=== PATIENT | female | born 1975 | race Caucasian/White ===

== ENCOUNTER 2020-09-19 12:10 | Emergency (ER) | payer BC ==
[2020-09-19 12:31] VITALS: RESP 18
[2020-09-19] MEDS ORDERED: KETOROLAC 15 MG/ML 1 ML VIAL IVP STA (12:58)
[2020-09-19 13:38] LABS: Basophils % (A) 0 %; Eosinophils # (A) 0.2 k/uL (0-0.7); Eosinophils % (A) 2 %; HCT 35.6 % (34.0-46.0); HGB 11.7 gm/dL (11.4-16.0); Lymphocytes # (A) 1.3 k/uL (1.0-4.8); Lymphocytes % (A) 17 %; MCH 29.8 pg (25.0-35.0); MCHC 32.8 g/dL (31.0-37.0); MCV 90.7 fL (80.0-100.0); Mean Platelet Volume 6.9; Monocytes # (A) 0.6 k/uL (0-1.0); Monocytes % (A) 8 %; Neutrophils # (A) 5.5 k/uL (1.3-7.7); Neutrophils % (A) 71 %; Platelet Count 342 k/uL (150-450); RBC 3.92 m/uL (3.80-5.40); RDW 12.5 % (11.5-15.5); WBC 7.7 k/uL (3.8-10.6)
[2020-09-19 13:58] LABS: ALT 10 U/L (4-34); AST 19 U/L (14-36); African American GFR (CKD) >90 (>60 ml/min/1.73 sqM); Albumin 4.1 g/dL (3.5-5.0); Alkaline Phosphatase 69 U/L (38-126); Anion Gap 4 mmol/L; Blood Urea Nitrogen 9 mg/dL (7-17); C Reactive Protein <5.0 mg/L (<10.0); Calcium 9.6 mg/dL (8.4-10.2); Carbon Dioxide 33 mmol/L (22-30); Chloride 102 mmol/L (98-107); Glucose 102 mg/dL (74-99); Non-African American GFR(CKD) >90 (>60 ml/min/1.73 sqM); Potassium 4.3 mmol/L (3.5-5.1); Sodium 139 mmol/L (137-145); Total Bilirubin 0.4 mg/dL (0.2-1.3)
--- NOTE | 2020-09-19 14:41 | CT ---
EXAMINATION TYPE: CT sinus w con DATE OF EXAM: 09/19/2020 COMPARISON: None. HISTORY: Dental pain , swelling, and fever since right-sided extraction CT DLP: 588.6 mGycm Automated exposure control for dose reduction was used. CONTRAST: CT scan of the facial bones is performed with IV Contrast, patient injected with 100 mL of Isovue 300 . TECHNIQUE: CT scan of the facial bones is performed with IV contrast, axial images are obtained, angie nal reformatted images are also reviewed. FINDINGS: Streak artifact from multiple cavitary fillings and crowns in the bilateral maxillary cristino bular teeth makes evaluation suboptimal asymmetric moderate soft tissue swelling and fat stranding ri ght submandibular level. No well-formed fluid collection or drainable abscess. There is bony breakthr ough with absent right canine tooth axial image 38 may be source of the infection. Several adjacent r oot canals are noted. Absent tooth also seen lateral to this axial image 36 premolar level with lucen cy. No bony breakthrough at this level. The airway remains patent. Some prominent but subcentimeter l ymph nodes throughout the neck bilaterally. Visualized paranasal sinuses are clear. Visualized portion of mastoid air cells show no abnormal opacification. The globes are intact bilate rally. Visualized brain parenchyma unremarkable. IMPRESSION: Moderate inflammatory change right facial region without focal fluid collection or draina ble abscess. Source likely right canine maxillary tooth recently removed as there is lucency with bon y breakthrough at this level centrally at the deep aspect of the inflammatory change.
--- NOTE | 2020-09-19 15:27 | ED ---
Skin/Abscess/FB HPI - General Chief complaint: Skin/Abscess/Foreign Body Stated complaint: dental pain Time Seen by Provider: 09/19/20 12:43 Source: patient Mode of arrival: ambulatory - History of Present Illness Initial comments: Patient is a 45-year-old female presenting to the emergency Department with complaints of right-sided facial swelling and dental pain for the last 3 days. Patient states 5 days ago she had 2 tooth extractions. Patient states she was doing well for the first 2 days afterwards but then the third day started noticing increase in pain and swelling of her right side of her cheek. She states she did call her dentist yesterday and started her on clindamycin, 150 mg 4 times daily. Patient states today the pain and pressure has increased and she also feels that the swelling has gotten worse as well. She denies any fevers, no nausea or vomiting, no other complaints at this time. - Related Data Home Medications Medication Instructions Recorded Confirmed Acetaminophen with Codeine 1 tab PO Q6H PRN 09/19/20 09/19/20 [Tylenol w/Codeine #4 Tablet] Clindamycin [Cleocin] 150 mg PO Q6H 09/19/20 09/19/20 estradioL [estradioL (Twice 1 patch TRANSDERM SUTH 09/19/20 09/19/20 Weekly) 0.1 mg Patch] Previous Rx's Medication Instructions Recorded Clindamycin HCl 300 mg PO Q6HR 7 Days #28 cap 09/19/20 HYDROcodone/APAP 5-325MG [[place] 5] 1 each PO Q4HR PRN #10 tab 09/19/20 Allergies Allergy/AdvReac Type Severity Reaction Status Date / Time amoxicillin Allergy Anaphylaxis Verified 09/19/20 13:42 clavulanic acid Allergy Anaphylaxis Verified 09/19/20 13:42 [From Augmentin] Penicillins Allergy Anaphylaxis Verified 09/19/20 13:42 hydrocodone [From Vicodin] AdvReac Nausea & Verified 09/19/20 13:42 Vomiting Review of Systems ROS Statement: Those systems with pertinent positive or pertinent negative responses have been documented in the HPI. ROS Other: All systems not noted in ROS Statement are negative. Past Medical History Past Medical History: Cancer Additional Past Medical History / Comment(s): cervical CA, kidney issues History of Any Multi-Drug Resistant Organisms: None Reported Additional Past Surgical History / Comment(s): laproscopy Past Psychological History: No Psychological Hx Reported Smoking Status: Vaper Past Alcohol Use History: None Reported Past Drug Use History: None Reported General Exam - General Exam Comments Initial Comments: GENERAL: Patient is well-developed and well-nourished. Patient is nontoxic and in no acute distress. HEAD: Atraumatic, normocephalic. EYES: Pupils equal round and reactive to light, extraocular movements intact, sclera anicteric, conjunctiva are normal. Eyelids were unremarkable. ENT: TMs normal, nares patent, oropharynx clear without exudates. Moist mucous membranes. Recent dental extractions of teeth # 4&5. No visible sign of dental abscess or significant drainage. Patient does have mild to moderate swelling of the right side of the face. There is no overlying erythema. NECK: Normal range of motion, supple without lymphadenopathy or JVD. LUNGS: Unlabored respirations. Breath sounds clear to auscultation bilaterally and equal. No wheezes rales or rhonchi. HEART: Regular rate and rhythm without murmurs, rubs or gallops. ABDOMEN: Soft, nontender, normoactive bowel sounds. No guarding, no rebound. No masses appreciated. : Deferred MUSCULOSKELETAL: Normal extremities with adequate strength and normal range of motion, no pitting or edema. No clubbing or cyanosis. NEUROLOGICAL: Patient is alert and oriented x 3. Motor and sensory are also intact. Cranial nerves II through XII grossly intact. Symmetrical smile. Normal speech, normal gait. PSYCH: Normal mood, normal affect. SKIN: Warm, Dry, normal turgor, no rashes or lesions noted. Course Vital Signs 09/19/20 09/19/20 12:24 15:31 Temperature 99.7 F H 98.2 F Pulse Rate 78 80 Respiratory 18 18 Rate Blood Pressure 105/54 100/56 O2 Sat by Pulse 100 99 Oximetry Medical Decision Making - Medical Decision Making Patient is a 45-year-old female here for right-sided facial swelling increase in pain 5 days after 2 dental extractions. Patient did arrive at 99.7 temporal, rest of vitals are normal. Labs show normal white count, normal CRP. Computed tomography scan revealed no evidence of acute abscess. Patient was on clindamycin 150 mg, did increase this for a total of 400 mg 4 times daily. Patient will follow-up with her dentist. Return parameters were discussed with the patient she verbalized understanding. Case discussed Dr. Bustillo. - Lab Data Result diagrams: 09/19/20 13:20 09/19/20 13:20 Lab Results 09/19/20 09/19/20 Range/Units 13:20 13:20 WBC 7.7 (3.8-10.6) k/uL RBC 3.92 (3.80-5.40) m/uL Hgb 11.7 (11.4-16.0) gm/dL Hct 35.6 (34.0-46.0) % MCV 90.7 (80.0-100.0) fL MCH 29.8 (25.0-35.0) pg MCHC 32.8 (31.0-37.0) g/dL RDW 12.5 (11.5-15.5) % Plt Count 342 (150-450) k/uL MPV 6.9 Neutrophils % 71 % Lymphocytes % 17 % Monocytes % 8 % Eosinophils % 2 % Basophils % 0 % Neutrophils # 5.5 (1.3-7.7) k/uL Lymphocytes # 1.3 (1.0-4.8) k/uL Monocytes # 0.6 (0-1.0) k/uL Eosinophils # 0.2 (0-0.7) k/uL Basophils # 0.0 (0-0.2) k/uL Sodium 139 (137-145) mmol/L Potassium 4.3 (3.5-5.1) mmol/L Chloride 102 (98-107) mmol/L Carbon Dioxide 33 H (22-30) mmol/L Anion Gap 4 mmol/L BUN 9 (7-17) mg/dL Creatinine 0.57 (0.52-1.04) mg/dL Est GFR (CKD-EPI)AfAm >90 (>60 ml/min/1.73 sqM) Est GFR (CKD-EPI)NonAf >90 (>60 ml/min/1.73 sqM) Glucose 102 H (74-99) mg/dL Calcium 9.6 (8.4-10.2) mg/dL Total Bilirubin 0.4 (0.2-1.3) mg/dL AST 19 (14-36) U/L ALT 10 (4-34) U/L Alkaline Phosphatase 69 (38-126) U/L C-Reactive Protein <5.0 (<10.0) mg/L Total Protein 7.0 (6.3-8.2) g/dL Albumin 4.1 (3.5-5.0) g/dL Disposition Clinical Impression: Swelling of right side of face, Dental abscess Disposition: HOME SELF-CARE Condition: Stable Instructions (If sedation given, give patient instructions): Dental Abscess (ED) Additional Instructions: Please return to the Emergency Department if symptoms worsen or any other concerns. Take antibiotics as prescribed. Take motrin for pain, for severe pain, may take norco. Follow-up with Dentist. Prescriptions: Clindamycin HCl 300 mg PO Q6HR 7 Days #28 cap HYDROcodone/APAP 5-325MG [[place] 5] 1 each PO Q4HR PRN #10 tab PRN Reason: Pain Is patient prescribed a controlled substance at d/c from ED?: Yes When asked, does pt state using other controlled substances?: No If prescribed controlled substance>3 days was MAPS reviewed?: Prescribed <3 Days If opioid is for acute pain is fill amount 7 days or less?: Yes If Rx opioid, was Start Talking consent form obtained?: Yes Referrals: Irving Kinsey MD [Primary Care Provider] - 1-2 days
[2020-09-19 15:50] VITALS: BP 100/56; PULSE 80; TEMP 98.2
== END 2020-09-19 15:35 | disposition home or self-care (01) ==
LOC: EC 12:10
DX: K04.7 Periapical abscess without sinus (principal); F17.290 Nicotine dependence, other tobacco product, uncomplicated; Z79.890 Hormone replacement therapy; Z88.0 Allergy status to penicillin; Z88.5 Allergy status to narcotic agent; Z88.1 Allergy status to other antibiotic agents; Z85.41 Personal history of malignant neoplasm of cervix uteri; Z98.818 Other dental procedure status
CPT/HCPCS: 36415; 80053; 85025; 86140; 70487; 99283; 96374; J1885; Q9967

== ENCOUNTER 2023-04-20 09:34 | Day surgery (SDC) | payer BC ==
[2023-04-19 11:03] VITALS: BMI 23.3
--- NOTE | 2023-04-19 12:32 | P.GSHP ---
History of Present Illness H&P Date: 04/19/23 48-year-old female with a several millimeter distal left ureteral stone causing discomfort. She has a history of kidney stones. She comes for left ureteroscopy and laser lithotripsy - Constitutional Constitutional: Denies chills, Denies fever - EENT Eyes: denies blurred vision, denies pain Ears, nose, mouth and throat: Denies headache, Denies sore throat - Cardiovascular Cardiovascular: Denies chest pain, Denies shortness of breath - Respiratory Respiratory: Denies cough, Denies 7 - Gastrointestinal Gastrointestinal: Denies abdominal pain, Denies diarrhea, Denies nausea, Denies vomiting - Genitourinary (Female) Genitourinary: Denies dysuria, Denies hematuria - Genitourinary (Male) Genitourinary: Denies dysuria, Denies hematuria - Musculoskeletal Musculoskeletal: Denies myalgias - Integumentary Integumentary: Denies pruritus, Denies rash - Neurological Neurological: Denies numbness, Denies weakness - Psychiatric Psychiatric: Denies anxiety, Denies depression - Endocrine Endocrine: Denies fatigue, Denies weight change Past Medical History Past Medical History: Cancer Additional Past Medical History / Comment(s): cervical CA, kidney stones History of Any Multi-Drug Resistant Organisms: None Reported Past Surgical History: Hysterectomy Additional Past Surgical History / Comment(s): kidney stone removal Past Anesthesia/Blood Transfusion Reactions: No Reported Reaction Past Psychological History: No Psychological Hx Reported Smoking Status: Former smoker, Vaper Past Alcohol Use History: None Reported Past Drug Use History: None Reported - Past Family History Father Family Medical History: Myocardial Infarction ([place]) Medications and Allergies Home Medications Medication Instructions Recorded Confirmed Type Acetaminophen-Codeine 300-30mg 1 tab PO Q6H PRN 04/19/23 04/19/23 History [Tylenol w/codeine #3] Ketorolac [Toradol] 10 mg PO Q6HR PRN 04/19/23 04/19/23 History Ondansetron [Zofran] 4 mg PO Q6H PRN 04/19/23 04/19/23 History Tamsulosin [Flomax] 0.4 mg PO DAILY 04/19/23 04/19/23 History Allergies Allergy/AdvReac Type Severity Reaction Status Date / Time amoxicillin Allergy Anaphylaxis Verified 04/19/23 10:51 clavulanic acid Allergy Anaphylaxis Verified 04/19/23 10:51 [From Augmentin] Penicillins Allergy Anaphylaxis Verified 04/19/23 10:51 sertraline [From Zoloft] Allergy Rash/Hives Verified 04/19/23 10:51 hydrocodone [From Vicodin] AdvReac Nausea & Verified 04/19/23 10:51 Vomiting Results - Imaging CT scan - abdomen: report reviewed, image reviewed CT scan - pelvis: report reviewed, image reviewed Assessment and Plan Assessment: Impression: Left ureteral stone with obstruction Recommendations left ureteroscopy laser lithotripsy possible stent
[~2023-04-20 09:34] MED LIST: DEXAMETHASONE SOD PHOSPHATE 4 MG/ML 1 ML VIAL IV ONE; HYDROmorphone 0.5 MG/0.5 ML SYRINGE IVP PRN; LACTATED RINGERS 1,000 ML IV SCH; ONDANSETRON 4 MG/2 ML VIAL IVP ONE
--- NOTE | 2023-04-20 10:11 | XR ---
EXAMINATION TYPE: XR KUB DATE OF EXAM: 04/20/2023 COMPARISON: None INDICATION: Kidney stone TECHNIQUE: Single view abdomen FINDINGS: There is a normal bowel gas pattern. Fecal debris is within the colon. Psoas margins are normal. No organomegaly is present. Suspicious calcifications are not identified. Couple of tiny punctate calcifications overlying the in ferior pole right kidney may be present. Tiny calcification over the superior pole left kidney is not excluded. IMPRESSION: 1. There may be tiny calcifications present overlying the kidneys. 2. Moderate fecal retention.
[2023-04-20] MEDS ORDERED: LIDOCAINE 1% (10MG/ML) FOR IV START INTRADERMA ONE (11:12)
[2023-04-20] MEDS ORDERED: MIDAZOLAM 2 MG/2 ML VIAL ONE (11:38)
[2023-04-20] MEDS ORDERED: KETOROLAC 15 MG/ML 1 ML VIAL ONE (11:38)
[2023-04-20] MEDS ORDERED: fentaNYL (PF) 50 MCG/ML 2 ML AMP ONE (11:38)
[2023-04-20] MEDS ORDERED: LIDOCAINE 2% INJ 20 MG/ML (2 ML VIAL) ONE (11:38)
[2023-04-20] MEDS ORDERED: PROPOFOL 10 MG/ML 20 ML VIAL IV ONE (11:38)
[2023-04-20] MEDS ORDERED: IOPAMIDOL-370 100ML BTL INJ ONE (12:04)
--- NOTE | 2023-04-20 12:18 | P.OP ---
Date of Procedure: 04/20/23 Preoperative Diagnosis: Left ureteral calculus with obstruction and colic. Right ureteral colic, new onset, history kidney stones Postoperative Diagnosis: Same, stone passed left, normal retrograde pyelogram right Procedure(s) Performed: Cystoscopy, bilateral retrograde pyelograms, left ureteroscopy Anesthesia: BRITTANYA Surgeon: Emil Huynh Estimated Blood Loss (ml): 0 Pathology: none sent Condition: stable Disposition: PACU Indications for Procedure: Patient is 48. She came to me late last week with a 8-9 mm distal ureteral stone on the left a history of multiple stone passages out of state in the past. Small bilateral renal calculi. Because of persistent pain she wishes the stone to be removed. The patient still states she has a lot of pain today consistent with a distal ureteral stone. She has new onset right-sided pain. For cystoscopy bilateral retrograde pyelograms probable left ureteroscopy and laser lithotripsy Description of Procedure: Patient brought to the operating suite. Given general anesthetic. Placed lithotomy position with sterile prep and drape. Fluoroscopy identifies a calcification near the region of the left distal ureter. Cystoscopy identifies a normal bladder somewhat inflamed left ureteral orifice. Within a cone-tipped catheter a left retrograde pyelogram performed. The left ureter is quite dilated and does not freely. I do not see a distinct filling defect. A right retrograde pyelogram performed ureter is of normal course and caliber. Because of the dilated left ureter I will do left ureteroscopy. With the semirigid ureteroscope the left ureter is gingerly intubated. There is edema in the intramural tunnel from where the stone probably was. I do not see a stone. Pass the ureteroscope all the way up in the kidney and do not see anything other than a dilated ureter. There is no remaining stones. I do not see any obvious stones in the renal pelvis. Pullout ureteroscopy on the left side identifies the same thing. The bladder is drained the patient is awakened and returned recovery room good condition. She tolerated the procedure well be discharged home upon recovery Impression left ureteral stone passed right ureteral colic without obvious stone
[2023-04-20 12:23] VITALS: TEMP 97.2
[2023-04-20 13:00] VITALS: RESP 16
--- NOTE | 2023-04-20 13:21 | FL ---
Fluoroscopy INDICATION: Pain FINDINGS: Fluoroscopy time: 39 seconds. Total dose area product (DAP) in uGy*m?, mGy*cm? (or similar): 3.9229 Images obtained: 3. IMPRESSIONS: 1. Documentation of fluoroscopy.
[2023-04-20 13:35] VITALS: BP 131/79; PULSE 49
== END 2023-04-20 13:50 | disposition home or self-care (01) ==
LOC: OR 09:34
PROVIDERS: ATTEND Urology
DX: N20.1 Calculus of ureter (principal); F12.90 Cannabis use, unspecified, uncomplicated; Z87.442 Personal history of urinary calculi; Z90.710 Acquired absence of both cervix and uterus; Z87.891 Personal history of nicotine dependence; Z79.899 Other long term (current) drug therapy; Z88.0 Allergy status to penicillin; Z88.1 Allergy status to other antibiotic agents; Z88.5 Allergy status to narcotic agent; Z88.8 Allergy status to other drugs, medicaments and biological substances; Z98.890 Other specified postprocedural states
CPT/HCPCS: 74420; 74018; 52351; C1758; J2250; J1100; J2405; J0690; J3010; J1885; J2704; Q9967; J2001